=== PATIENT | female | born 1950 | race Caucasian/White ===

== ENCOUNTER → 2016-05-28 | Outpatient (CLI) | payer MEDICARE, OTHER | LOC: RAD 10:52 | DX: J40 Bronchitis, not specified as acute or chronic (principal) | CPT/HCPCS: 71020 ==

== ENCOUNTER → 2020-04-08 | Outpatient (CLI) | payer MEDICARE, OTHER ==
[~2020-04-08] MED LIST: ASPIR-LOW81 MG PO; BRILINTA 90 MG90 MG PO; CRESTOR10 MG PO; CYANOCOBAL1000 MCG/1 INJ; ELIQUIS 2.5 MG2.5 MG PO; ELIQUIS 5 MG TAB5 MG PO; IMDUR ER TAB 3030 MG PO; LOTENSIN TAB 1010 MG PO; LOTENSIN20 MG PO; LOTENSIN40 MG PO; METOPROLOL SUCC25 MG PO; NITROFURANTOIN100 MG PO; NITROGLYCERIN0.4 MG SL; NORCO 5-325 TA1 EACH PO; NORVASC10 MG PO; OMNICEF 300 MG300 MG PO; PANTOPRAZOLE SO40 MG PO; PERCOCET 5-3251 EACH PO; PRAVASTATIN SOD80 MG PO; SYNTHROID25 MCG PO; VITAMIN D350000 UNIT PO
== END ==
LOC: KOH-I 02-25 10:30
DX: R29.898 Other symptoms and signs involving the musculoskeletal system (principal)
CPT/HCPCS: 93925

== ENCOUNTER 2020-05-12 05:46 | Emergency (ER) | payer MEDICARE, OTHER ==
[2020-05-12 07:33] LABS: HEMOGLOBIN 13.2 gm/dl (12.3-15.3); RED BLOOD COUNT 4.13 M/UL (4.00-5.10); WHITE BLOOD COUNT 6.4 K/UL (4.5-11.0)
== END 2020-05-12 09:47 | disposition home or self-care (01) ==
LOC: ER1 05:46
PROVIDERS: Emergency Medicine
DX: R33.9 Retention of urine, unspecified (principal); I10 Essential (primary) hypertension; I25.10 Atherosclerotic heart disease of native coronary artery without angina pectoris; Z87.442 Personal history of urinary calculi
CPT/HCPCS: 51702; 80053; 81001; 85025; 99283

== ENCOUNTER 2020-05-14 05:20 | Emergency (ER) | payer MEDICARE, OTHER | END 2020-05-14 10:00 | disposition left against medical advice (07) | LOC: ER1 05:20 | DX: Z53.21 Procedure and treatment not carried out due to patient leaving prior to being seen by health care provider (principal) ==